=== PATIENT | male | born 1955 | race Two or more races ===

== ENCOUNTER → 2019-07-31 | Outpatient (CLI) | payer OTHER ==
--- NOTE | 2019-07-31 11:52 | Diagnostic Imaging Report ---
Exam: Right knee 3 views History: Pain Comparison: None. Findings: No fracture or malalignment. Patellofemoral predominant joint space narrowing. Tricompartment osteophytosis. Impression: No acute osseous abnormality Advanced patellofemoral degenerative arthrosis Signed by: Dr. Jesus Chavarria M.D. on 07/31/2019 11:49 AM
== END ==
LOC: RAD 11:14
PROVIDERS: ATTEND Internal Medicine
DX: M25.561 Pain in right knee (principal)